=== PATIENT | female | born 1935 | race Caucasian/White ===

== ENCOUNTER 2018-03-19 15:02 | Emergency (ER) | payer MEDICARE ==
[~2018-03-19] VITALS: Ht 165.1 cm; Wt 81.0 kg
[~2018-03-19 15:02] MED LIST: ASPI-1264 PO; ATOR20TA PO; CALC-336 PO; CARV-50 PO; CLOP75TA35 PO; DOCU100C40 PO; ENAL20TA75 PO; LACT1CAP26 PO; METF500T7 PO; MULT-1074 PO; OMEG300C3 PO; OMEP20CA4 PO; PARO10TA85 PO
[2018-03-19 15:18] VITALS: BP 154/82
[2018-03-19 16:29] LABS: CLARITY,URINE CLEAR (Clear); COLOR,URINE YELLOW (Yellow); GLUCOSE, URINE NEGATIVE (Neg); KETONES,URINE NEGATIVE (Neg); LEUKOCYTE ESTERASE ,URINE NEGATIVE (Neg); NITRITES, URINE NEGATIVE (Neg); OCCULT BLOOD,URINE TRACE-INTACT (Neg); PH,URINE 6.5 (4.8-8.0); PROTEIN,URINE NEGATIVE (Neg); UROBILINOGEN,URINE 0.2 E.U/dL (0.2-1.0)
[2018-03-19 16:36] LABS: UA COLLECTION TYPE CLN CATCH MIDSTREAM
[2018-03-19 16:38] LABS: BACTERIA,URINE FEW /HPF (Neg); SQUAMOUS EPITHELIAL CELL,UR FEW /LPF (FEW); WBC,URINE 0-4 /HPF (0-4)
[2018-03-19 18:29] LABS: BASOPHILS % (AUTO) 0.8 % (0-1); EOSINOPHILS # (AUTO) 0.2 X10'3 (0-0.9); EOSINOPHILS % (AUTO) 3.2 % (0-6); HEMATOCRIT 35.7 % (35.0-45.0); HEMOGLOBIN 11.9 g/dl (12.0-16.0); LYMPHOCYTES # (AUTO) 1.9 X10'3 (1.1-4.8); LYMPHOCYTES % (AUTO) 31.4 % (21-51); MEAN CORPUSCULAR HEMOGLOBIN 33.2 PG (27.0-31.0); MEAN CORPUSCULAR HGB CONC 33.2 % (33.0-36.5); MEAN CORPUSCULAR VOLUME 99.8 FL (78-98); MEAN PLATELET VOLUME 9.4 FL (7.4-10.4); MONOCYTES # (AUTO) 0.5 X10'3 (0-0.9); MONOCYTES % (AUTO) 7.9 % (2-12); NEUTROPHILS # (AUTO) 3.5 X10'3 (1.8-7.7); NEUTROPHILS % (AUTO) 56.7 % (42-75); PLATELET COUNT 260 X10'3 (140-440); RED BLOOD COUNT 3.58 X10'6 (4.20-5.60); RED CELL DISTRIBUTION WIDTH 12.3 % (11.5-14.5); WHITE BLOOD COUNT 6.1 X10'3 (4.5-11.0)
[2018-03-19 18:42] LABS: ALANINE AMINOTRANSFERASE 29 U/L (12-78); ALBUMIN 3.4 G/DL (3.4-5.0); ALBUMIN/GLOBULIN RATIO 0.9 (1.1-1.5); ALKALINE PHOSPHATASE 65 IU/L (46-116); ANION GAP 6 (8-16); ASPARTATE AMINO TRANSFERASE 21 U/L (10-37); BILIRUBIN,TOTAL 0.4 MG/DL (0.1-1.0); BLOOD UREA NITROGEN 15 MG/DL (7-18); BUN/CREATININE RATIO 16.1 (6.6-38.0); CALCIUM 9.3 MG/DL (8.5-10.1); CHLORIDE 102 MMOL/L (99-107); CREATININE 0.93 MG/DL (0.40-0.90); GLUCOSE 110 MG/DL (70-104); POTASSIUM 4.3 MMOL/L (3.5-5.1); SODIUM 138 MMOL/L (135-145); TOTAL CARBON DIOXIDE 30.4 MMOL/L (24-32); TOTAL PROTEIN 7.1 G/DL (6.4-8.2); eGFR 58 ML/MIN
[2018-03-19] MEDS ORDERED: TRAM50TA2 PO (19:23)
== END 2018-03-19 19:44 | disposition home or self-care (01) ==
LOC: ER 15:02
DX: M25.552 Pain in left hip (principal); I11.0 Hypertensive heart disease with heart failure; I50.9 Heart failure, unspecified; E11.9 Type 2 diabetes mellitus without complications; Z88.0 Allergy status to penicillin; Z90.49 Acquired absence of other specified parts of digestive tract
CPT/HCPCS: 36415; 73502; 80053; 81001; 85025; 99284

== ENCOUNTER 2018-06-26 05:57 | Day surgery (SDC) | payer MEDICARE ==
[2018-06-25 15:26] LABS: BASOPHILS # (AUTO) 0.1 X10'3 (0-0.2); BASOPHILS % (AUTO) 1.3 % (0-1); EOSINOPHILS # (AUTO) 0.2 X10'3 (0-0.9); EOSINOPHILS % (AUTO) 3.3 % (0-6); HEMATOCRIT 34.9 % (35.0-45.0); HEMOGLOBIN 11.6 g/dl (12.0-16.0); LYMPHOCYTES # (AUTO) 1.7 X10'3 (1.1-4.8); LYMPHOCYTES % (AUTO) 30.5 % (21-51); MEAN CORPUSCULAR HEMOGLOBIN 33.1 PG (27.0-31.0); MEAN CORPUSCULAR HGB CONC 33.3 g/dL (33.0-36.5); MEAN CORPUSCULAR VOLUME 99.3 FL (78-98); MEAN PLATELET VOLUME 9.6 FL (7.4-10.4); MONOCYTES # (AUTO) 0.6 X10'3 (0-0.9); MONOCYTES % (AUTO) 9.8 % (2-12); NEUTROPHILS # (AUTO) 3.1 X10'3 (1.8-7.7); NEUTROPHILS % (AUTO) 55.1 % (42-75); PLATELET COUNT 224 X10'3 (140-440); RED BLOOD COUNT 3.51 X10'6 (4.20-5.60); RED CELL DISTRIBUTION WIDTH 13.2 % (11.5-14.5); WHITE BLOOD COUNT 5.6 X10'3 (4.5-11.0)
[2018-06-25 15:36] LABS: ALBUMIN 3.3 G/DL (3.4-5.0); ANION GAP 8 (8-16); BLOOD UREA NITROGEN 16 MG/DL (7-18); BUN/CREATININE RATIO 13.8 (6.6-38.0); CALCIUM 9.2 MG/DL (8.5-10.1); CHLORIDE 105 MMOL/L (99-107); CREATININE 1.16 MG/DL (0.40-0.90); GLUCOSE 146 MG/DL (70-104); POTASSIUM 4.1 MMOL/L (3.5-5.1); SODIUM 142 MMOL/L (135-145); TOTAL CARBON DIOXIDE 29.5 MMOL/L (24-32); eGFR 45 ML/MIN
[2018-06-25 15:42] LABS: PARTIAL THROMBOPLASTIN TIME 24 SECONDS (22-32); PROTHROMBIN TIME 9.9 SECONDS (9.0-12.0)
[~2018-06-26] VITALS: Ht 165.1 cm; Wt 80.9 kg
[2018-06-26] VITALS (12 sets, daily range): BP systolic 121–177; BP diastolic 53–71
[2018-06-26] MEDS ORDERED: LORazepam 0.5 MG tablet PO PRN (06:10)
[2018-06-26] MEDS ORDERED: diphenhydrAMINE 25mg capsule PO PRN (06:10)
[2018-06-26] MEDS ORDERED: normal saline 1,000 ML IV SCH (06:10)
[2018-06-26] MEDS ORDERED: LIDOcaine/PRILOcaine 5gm cream TP ONE (06:10)
[2018-06-26] MEDS ORDERED: GLUC500T12 PO (06:29)
[2018-06-26] MEDS ORDERED: ASCO500C15 PO (06:29)
[2018-06-26] MEDS ORDERED: VIT1CAPS9 PO (06:29)
[2018-06-26] MEDS ORDERED: HYDR12.5 PO (06:29)
[2018-06-26] MEDS ORDERED: LIDOcaine 1% (10mg/ml)w/preservative injection 20ml MDV ONE (07:43)
[2018-06-26] MEDS ORDERED: heparin 1,000unit/ml 10ml vial 10 ML ONE (07:43)
[2018-06-26] MEDS ORDERED: fentaNYL/PF 50MCG/1 ML 2ML syringe ONE (07:43)
[2018-06-26] MEDS ORDERED: midazolam 2 mg/2 ml injection ONE (07:43)
[2018-06-26] MEDS ORDERED: iohexol 350 MG/ML 50ML vial IV ONE (07:44)
[2018-06-26] MEDS ORDERED: iohexol 350MG/ML 100ml bottle IV ONE (07:44)
[2018-06-26] MEDS ORDERED: nitroGLYCERIN-Tridil 50MG/D5W 250 ML IV ONE (07:44)
[2018-06-26] MEDS ORDERED: verapamil 2.5 mg/ml inj IV ONE (08:07)
== END 2018-06-26 13:45 | disposition home or self-care (01) ==
LOC: SSTAY O 05:57
PROVIDERS: ATTEND Internal Medicine Cardiovascular Disease
DX: I25.119 Atherosclerotic heart disease of native coronary artery with unspecified angina pectoris (principal); E11.9 Type 2 diabetes mellitus without complications; E78.5 Hyperlipidemia, unspecified; I11.0 Hypertensive heart disease with heart failure; I50.9 Heart failure, unspecified; G47.30 Sleep apnea, unspecified; F32.9 Major depressive disorder, single episode, unspecified; Z86.73 Personal history of transient ischemic attack (TIA), and cerebral infarction without residual deficits; Z79.899 Other long term (current) drug therapy; Z90.49 Acquired absence of other specified parts of digestive tract; Z90.710 Acquired absence of both cervix and uterus; Z85.118 Personal history of other malignant neoplasm of bronchus and lung; Z95.5 Presence of coronary angioplasty implant and graft; Z88.0 Allergy status to penicillin
CPT/HCPCS: 36415; 80048; 85025; 85610; 85730; 93005; 93458; 99152; 99153; A6257; J1644; J2001; J2250; J3010; J7030; Q0163; Q9967; A4620; C1769; J3490

== ENCOUNTER 2019-10-15 14:38 | Inpatient (IN) | payer MEDICARE ==
[~2019-10-15] VITALS: Ht 167.6 cm; Wt 79.0 kg
[~2019-10-15 14:38] MED LIST changes: +ASCO500C15 PO; -ASPI-1264 PO; -CLOP75TA35 PO; -DOCU100C40 PO; +GLUC500T12 PO; +HYDR12.5 PO; -LACT1CAP26 PO; +METF-900 PO; -METF500T7 PO; +VIT1CAPS9 PO
[2019-10-15 15:29] LABS: EOSINOPHILS # (AUTO) 0.1 X10'3 (0-0.9); HEMATOCRIT 35.1 % (35.0-45.0); HEMOGLOBIN 11.7 g/dl (12.0-16.0); MEAN CORPUSCULAR HEMOGLOBIN 33.9 PG (27.0-31.0); MEAN CORPUSCULAR HGB CONC 33.3 g/dL (33.0-36.5); MEAN CORPUSCULAR VOLUME 101.8 FL (78-98); MONOCYTES # (AUTO) 0.6 X10'3 (0-0.9); RED CELL DISTRIBUTION WIDTH 12.9 % (11.5-14.5)
[2019-10-15 15:30] LABS: BASOPHILS # (AUTO) 0.1 X10'3 (0-0.2); BASOPHILS % (AUTO) 1.2 % (0-1); EOSINOPHILS % (AUTO) 1.9 % (0-6); LYMPHOCYTES % (AUTO) 26.2 % (21-51); MONOCYTES % (AUTO) 7.9 % (2-12); NEUTROPHILS # (AUTO) 4.8 X10'3 (1.8-7.7); NEUTROPHILS % (AUTO) 62.8 % (42-75); PLATELET COUNT 249 X10'3 (140-440); RED BLOOD COUNT 3.44 X10'6 (4.20-5.60); WHITE BLOOD COUNT 7.6 X10'3 (4.5-11.0)
[2019-10-15 15:42] LABS: PARTIAL THROMBOPLASTIN TIME 23 SECONDS (22-32)
[2019-10-15 15:43] LABS: ALANINE AMINOTRANSFERASE 24 U/L (12-78); ALBUMIN 3.3 G/DL (3.4-5.0); ALKALINE PHOSPHATASE 52 IU/L (46-116); ANION GAP 7 (8-16); ASPARTATE AMINO TRANSFERASE 21 U/L (10-37); BILIRUBIN,TOTAL 0.4 MG/DL (0.1-1.0); BLOOD UREA NITROGEN 20 MG/DL (7-18); BUN/CREATININE RATIO 16.4 (6.6-38.0); CALCIUM 8.8 MG/DL (8.5-10.1); CHLORIDE 105 MMOL/L (99-107); CREATININE 1.22 MG/DL (0.40-0.90); GLUCOSE 150 MG/DL (70-104); POTASSIUM 4.6 MMOL/L (3.5-5.1); SODIUM 140 MMOL/L (135-145); TOTAL CARBON DIOXIDE 27.7 MMOL/L (24-32); TOTAL PROTEIN 6.7 G/DL (6.4-8.2); eGFR 42 ML/MIN
[2019-10-15] MEDS ORDERED: ESTR42.53 VG (16:13)
[2019-10-15] MEDS ORDERED: MIDAZolam 5mg/5ml vial ONE (17:39)
[2019-10-15] MEDS ORDERED: fentaNYL/PF 50MCG/1 ML 2ML syringe ONE (17:39)
--- NOTE | 2019-10-15 17:42 | NUR ---
PATIENT TO GI LAB
[2019-10-15 17:46] VITALS: BP 128/63
[2019-10-15] MEDS ORDERED: epiNEPHrine 0.1mg/ml 10ml syringe ONE (18:08)
[2019-10-15 18:51] VITALS: BP 143/74
[2019-10-15 19:01] VITALS: BP 142/64
[2019-10-15 19:11] VITALS: BP 134/56
[2019-10-15 19:21] VITALS: BP 124/60
[2019-10-15] MEDS ORDERED: morphine 2 MG/ML inj. syringe IV PRN ×2 (20:05)
[2019-10-15] MEDS ORDERED: magnesium 2GM in 50ml NS 50 ML IV PRN (20:05)
[2019-10-15] MEDS ORDERED: glucagon, human recombinant 1mg kit SUBCUT PRN (20:05)
[2019-10-15] MEDS ORDERED: dextrose ORAL solution 15 GM/59 ML bottle PO PRN ×2 (20:05)
[2019-10-15] MEDS ORDERED: potassium CL 10mEq/100ml bag 100 ML IV PRN ×2 (20:05)
[2019-10-15] MEDS ORDERED: insulin Lispro (HumaLOG) vial - multi-dose SQ SCH (20:05)
[2019-10-15] MEDS ORDERED: mag hydrox/Alum hydrox/simeth 30ml oral suspension PO PRN (20:05)
[2019-10-15] MEDS ORDERED: ipratropium/albuterol 3ml nebule NEB PRN (20:05)
[2019-10-15] MEDS ORDERED: ondansetron/PF 4mg/2ml inj IV PRN (20:05)
[2019-10-15] MEDS ORDERED: acetaminophen 325mg tablet PO PRN (20:05)
[2019-10-15] MEDS ORDERED: MESSAGE TO PHARMACY PO ONE (20:05)
[2019-10-15] MEDS ORDERED: magnesium 4gm in 100ml NS 100 ML IV PRN (20:05)
[2019-10-15] MEDS ORDERED: potassium Cl 20 mEq SR tablet PO PRN ×2 (20:05)
[2019-10-15] MEDS ORDERED: dextrose 50%-water 50ml dispensing syringe IV PRN ×2 (20:05)
[2019-10-15 20:41] LABS: HEMOGLOBIN A1C 6.3 % (4.5-6.2)
[2019-10-15] MEDS: normal saline 1000ml 1,000 ML IV SCH (20:52)
[2019-10-15] MEDS: carVEDilol 3.125mg tablet PO SCH (20:52)
[2019-10-15] MEDS: insulin glargine (Lantus) pen - multi-dose SQ SCH (21:00)
[2019-10-15 21:03] LABS: HEMATOCRIT 29.3 % (35.0-45.0); HEMOGLOBIN 9.7 g/dl (12.0-16.0); MEAN CORPUSCULAR HEMOGLOBIN 33.9 PG (27.0-31.0); MEAN CORPUSCULAR HGB CONC 33.1 g/dL (33.0-36.5); MEAN CORPUSCULAR VOLUME 102.5 FL (78-98); MEAN PLATELET VOLUME 9.2 FL (7.4-10.4); PLATELET COUNT 200 X10'3 (140-440); RED BLOOD COUNT 2.85 X10'6 (4.20-5.60); RED CELL DISTRIBUTION WIDTH 13.2 % (11.5-14.5); WHITE BLOOD COUNT 10.2 X10'3 (4.5-11.0)
--- NOTE | 2019-10-15 21:55 | NUR ---
I have received report from Cap, ED RN and had the opportunity to ask questions and assume patient care.
--- NOTE | 2019-10-15 22:05 | NUR ---
Patient on unit in wheelchair and ambulated to bed.
[2019-10-15 22:10] VITALS: BP 112/62
[2019-10-15] MEDS: beta-carotene(A) w/C & E + minerals tab PO SCH (23:27)
[2019-10-16] VITALS (9 sets, daily range): BP systolic 100–148; BP diastolic 42–57
[2019-10-16 03:11] LABS: HEMATOCRIT 25.4 % (35.0-45.0); HEMOGLOBIN 8.6 g/dl (12.0-16.0); MEAN CORPUSCULAR HEMOGLOBIN 34.9 PG (27.0-31.0); MEAN CORPUSCULAR VOLUME 102.8 FL (78-98); MEAN PLATELET VOLUME 9.3 FL (7.4-10.4); PLATELET COUNT 179 X10'3 (140-440); RED BLOOD COUNT 2.48 X10'6 (4.20-5.60); RED CELL DISTRIBUTION WIDTH 12.8 % (11.5-14.5); WHITE BLOOD COUNT 6.9 X10'3 (4.5-11.0)
[2019-10-16 03:29] LABS: ALANINE AMINOTRANSFERASE 20 U/L (12-78); ALBUMIN 2.7 G/DL (3.4-5.0); ALBUMIN/GLOBULIN RATIO 1.1 (1.1-1.5); ALKALINE PHOSPHATASE 39 IU/L (46-116); ANION GAP 5 (8-16); ASPARTATE AMINO TRANSFERASE 19 U/L (10-37); BILIRUBIN,TOTAL 0.3 MG/DL (0.1-1.0); BLOOD UREA NITROGEN 21 MG/DL (7-18); BUN/CREATININE RATIO 18.3 (6.6-38.0); CALCIUM 8.1 MG/DL (8.5-10.1); CHLORIDE 109 MMOL/L (99-107); CREATININE 1.15 MG/DL (0.40-0.90); GLUCOSE 124 MG/DL (70-104); MAGNESIUM 1.9 MG/DL (1.5-2.4); POTASSIUM 4.6 MMOL/L (3.5-5.1); SODIUM 139 MMOL/L (135-145); TOTAL CARBON DIOXIDE 25.2 MMOL/L (24-32); TOTAL PROTEIN 5.1 G/DL (6.4-8.2); eGFR 45 ML/MIN
[2019-10-16] MEDS: normal saline 1000ml 1,000 ML IV SCH ×2 (05:50→16:26)
--- NOTE | 2019-10-16 06:30 | NUR ---
Patient in room MATT 353. I have received report from Blanca ALLEN and had the opportunity to ask questions and assume patient care.
--- NOTE | 2019-10-16 06:44 | NUR ---
Problems reprioritized. Patient report given, questions answered & plan of care reviewed with TIFFANY Charles.
[2019-10-16] MEDS: lisinopril 20mg tablet PO SCH (08:00)
[2019-10-16] MEDS: HYDROchlorothiazide 12.5mg capsule PO SCH (08:00)
[2019-10-16] MEDS ORDERED: GLUCOSAMINE HCL PO SCH (08:00)
[2019-10-16] MEDS: carVEDilol 3.125mg tablet PO SCH ×2 (08:00→19:33)
[2019-10-16] MEDS: K and/or MAG REPLACEMENT MC SCH ×2 (08:00→19:17)
--- NOTE | 2019-10-16 08:42 | NUR ---
DM consult: Pt with A1c 6.3%, DM education not warranted at this time. Will continue to follow. Addendum: 10/16/19 at [address] Amended: Links added.
[2019-10-16 09:05] LABS: HEMATOCRIT 22.6 % (35.0-45.0); HEMOGLOBIN 7.6 g/dl (12.0-16.0); MEAN CORPUSCULAR HEMOGLOBIN 34.2 PG (27.0-31.0); MEAN CORPUSCULAR HGB CONC 33.5 g/dL (33.0-36.5); MEAN CORPUSCULAR VOLUME 102.1 FL (78-98); MEAN PLATELET VOLUME 9.1 FL (7.4-10.4); PLATELET COUNT 160 X10'3 (140-440); RED BLOOD COUNT 2.21 X10'6 (4.20-5.60); RED CELL DISTRIBUTION WIDTH 13.2 % (11.5-14.5); WHITE BLOOD COUNT 5.5 X10'3 (4.5-11.0)
[2019-10-16] MEDS: ascorbic acid 500mg tablet PO SCH (09:23)
[2019-10-16] MEDS: atorvastatin 20mg tablet PO SCH (09:23)
[2019-10-16] MEDS: pantoprazole 40mg Tablet.DR PO SCH (09:24)
[2019-10-16] MEDS: calcium carbonate 500mg tablet PO SCH (09:24)
[2019-10-16] MEDS: PARoxetine 10mg tablet PO SCH (09:27)
[2019-10-16] MEDS: beta-carotene(A) w/C & E + minerals tab PO SCH ×2 (09:27→19:33)
[2019-10-16] MEDS: multivitamins, therapeutics tablet PO SCH (09:27)
[2019-10-16 15:44] LABS: HEMOGLOBIN 7.2 g/dl (12.0-16.0); MEAN CORPUSCULAR HEMOGLOBIN 34.2 PG (27.0-31.0); MEAN CORPUSCULAR HGB CONC 33.5 g/dL (33.0-36.5); MEAN PLATELET VOLUME 9.5 FL (7.4-10.4); PLATELET COUNT 153 X10'3 (140-440); RED BLOOD COUNT 2.11 X10'6 (4.20-5.60); RED CELL DISTRIBUTION WIDTH 12.8 % (11.5-14.5); WHITE BLOOD COUNT 5.8 X10'3 (4.5-11.0)
[2019-10-16 15:46] LABS: HEMATOCRIT 21.5 % (35.0-45.0)
--- NOTE | 2019-10-16 15:58 | NUR ---
Dr. Gentile notified about lab result hgb 7.2/hct 21.5 PAGER ID: [phone] MESSAGE: Surgical Flr Melvin RN ext [phone]. RE: Donna Araiza. Reporting critical value hgb 7.2/ hct 21.5. Do you want transfusion for this patient? Dr. Chavira note said transfuse if hgb <7.0
--- NOTE | 2019-10-16 18:45 | NUR ---
Problems reprioritized. Patient report given, questions answered & plan of care reviewed with Blanca ALLEN.
--- NOTE | 2019-10-16 18:58 | NUR ---
Patient in room MATT 350. I have received report from TIFFANY Charles and had the opportunity to ask questions and assume patient care.
[2019-10-16 20:35] LABS: MEAN CORPUSCULAR HEMOGLOBIN 34.4 PG (27.0-31.0); MEAN CORPUSCULAR HGB CONC 33.7 g/dL (33.0-36.5); MEAN CORPUSCULAR VOLUME 102.1 FL (78-98); MEAN PLATELET VOLUME 9.5 FL (7.4-10.4); PLATELET COUNT 152 X10'3 (140-440); RED BLOOD COUNT 2.03 X10'6 (4.20-5.60); WHITE BLOOD COUNT 5.8 X10'3 (4.5-11.0)
[2019-10-16 20:42] LABS: HEMATOCRIT 20.7 % (35.0-45.0)
--- NOTE | 2019-10-16 20:51 | NUR ---
PAGER ID: [phone]-Pm. Roback MESSAGE: Donna Araiza, Lower GI bleed. H/H now 7.0/20.7, was 7.2/21.5 at 14:58. Would you like to transfuse? Blanca, Surg [phone]
[2019-10-16] MEDS: insulin glargine (Lantus) pen - multi-dose SQ SCH (21:00)
--- NOTE | 2019-10-16 21:16 | NUR ---
Per Dr. Chavira, transfuse 1 unit of blood. Order placed. Consent signed by patient and a copy of brochure given to patient.
[2019-10-17 00:18] VITALS: BP 121/41
--- NOTE | 2019-10-17 00:18 | NUR ---
Blood transfusion completed. VS: Temp 98.3 F, HR 62, RR 18, BP 121/41, Pain 0/10. Patient without complaint of pain or discomfort at this time. Will continue to monitor patient.
[2019-10-17 00:38] VITALS: BP 121/43
[2019-10-17] MEDS: normal saline 1000ml 1,000 ML IV SCH (02:38)
[2019-10-17 03:01] LABS: ALANINE AMINOTRANSFERASE 10 U/L (12-78); ALBUMIN 2.5 G/DL (3.4-5.0); ALKALINE PHOSPHATASE 32 IU/L (46-116); ANION GAP 3 (8-16); ASPARTATE AMINO TRANSFERASE 18 U/L (10-37); BILIRUBIN,TOTAL 0.6 MG/DL (0.1-1.0); BLOOD UREA NITROGEN 23 MG/DL (7-18); BUN/CREATININE RATIO 18.5 (6.6-38.0); CHLORIDE 109 MMOL/L (99-107); CREATININE 1.24 MG/DL (0.40-0.90); GLUCOSE 124 MG/DL (70-104); MAGNESIUM 1.8 MG/DL (1.5-2.4); POTASSIUM 4.2 MMOL/L (3.5-5.1); SODIUM 138 MMOL/L (135-145); TOTAL CARBON DIOXIDE 26.3 MMOL/L (24-32); eGFR 41 ML/MIN
[2019-10-17 03:06] LABS: HEMATOCRIT 23.9 % (35.0-45.0); HEMOGLOBIN 8.1 g/dl (12.0-16.0); MEAN CORPUSCULAR HEMOGLOBIN 33.4 PG (27.0-31.0); MEAN CORPUSCULAR HGB CONC 33.7 g/dL (33.0-36.5); MEAN CORPUSCULAR VOLUME 98.9 FL (78-98); MEAN PLATELET VOLUME 9.4 FL (7.4-10.4); PLATELET COUNT 137 X10'3 (140-440); RED BLOOD COUNT 2.42 X10'6 (4.20-5.60); WHITE BLOOD COUNT 6.9 X10'3 (4.5-11.0)
--- NOTE | 2019-10-17 06:31 | NUR ---
Patient in room MATT 350. I have received report from Blanca ALLEN and had the opportunity to ask questions and assume patient care.
--- NOTE | 2019-10-17 06:33 | NUR ---
Problems reprioritized. Patient report given, questions answered & plan of care reviewed with TIFFANY Charles.
[2019-10-17 07:52] VITALS: BP 146/60
[2019-10-17] MEDS: K and/or MAG REPLACEMENT MC SCH (08:00)
[2019-10-17 08:15] LABS: HEMATOCRIT 23.2 % (35.0-45.0); HEMOGLOBIN 7.8 g/dl (12.0-16.0); MEAN CORPUSCULAR HEMOGLOBIN 33.2 PG (27.0-31.0); MEAN CORPUSCULAR HGB CONC 33.6 g/dL (33.0-36.5); MEAN CORPUSCULAR VOLUME 98.9 FL (78-98); MEAN PLATELET VOLUME 9.4 FL (7.4-10.4); PLATELET COUNT 144 X10'3 (140-440); RED BLOOD COUNT 2.34 X10'6 (4.20-5.60); RED CELL DISTRIBUTION WIDTH 15.1 % (11.5-14.5); WHITE BLOOD COUNT 6.2 X10'3 (4.5-11.0)
[2019-10-17] MEDS: carVEDilol 3.125mg tablet PO SCH (09:04)
[2019-10-17] MEDS: HYDROchlorothiazide 12.5mg capsule PO SCH (09:04)
[2019-10-17] MEDS: multivitamins, therapeutics tablet PO SCH (09:04)
[2019-10-17] MEDS: PARoxetine 10mg tablet PO SCH (09:04)
[2019-10-17] MEDS: atorvastatin 20mg tablet PO SCH (09:04)
[2019-10-17] MEDS: ascorbic acid 500mg tablet PO SCH (09:04)
[2019-10-17] MEDS: pantoprazole 40mg Tablet.DR PO SCH (09:04)
[2019-10-17] MEDS: beta-carotene(A) w/C & E + minerals tab PO SCH (09:05)
[2019-10-17] MEDS: calcium carbonate 500mg tablet PO SCH (09:05)
[2019-10-17] MEDS: lisinopril 20mg tablet PO SCH (09:05)
--- NOTE | 2019-10-17 10:23 | NUR ---
PAGER ID: [phone] MESSAGE: Soledad-Surg [phone] Re; Mary [phone] complaining of chest pain for the last 30 min resolved to 05/25 pain please call would you like EKG Addendum: 10/17/19 at 1033 by Soledad West RN Documented on incorrect patient please disregard note.
[2019-10-17 11:00] VITALS: BP 144/57
[2019-10-17 13:11] LABS: HEMOGLOBIN 8.1 g/dl (12.0-16.0); MEAN CORPUSCULAR HEMOGLOBIN 33.2 PG (27.0-31.0); MEAN CORPUSCULAR HGB CONC 33.7 g/dL (33.0-36.5); MEAN CORPUSCULAR VOLUME 98.5 FL (78-98); MEAN PLATELET VOLUME 9.3 FL (7.4-10.4); PLATELET COUNT 149 X10'3 (140-440); RED BLOOD COUNT 2.44 X10'6 (4.20-5.60); RED CELL DISTRIBUTION WIDTH 15.2 % (11.5-14.5); WHITE BLOOD COUNT 5.3 X10'3 (4.5-11.0)
--- NOTE | 2019-10-17 13:28 | NUR ---
PAGER ID: [phone] MESSAGE: Surgical Dilan Charles RN ext [phone]. RE: Donna Araiza. Repeat Hgb 8.1 from 7.8. Hct 24 from 23.2
--- NOTE | 2019-10-17 13:47 | NUR ---
Per Dr Gentile ok to Discharge patient she spoke to Dr Pena./
--- NOTE | 2019-10-17 14:55 | NUR ---
Discharge patient home, discharge instructions given to patient. Patient verbalized understanding of all instructions made. Peripheral IV catheter removed, tip intact. Instructed patient to ensure she has all her belongings with her before leaving. Emphasized to patient the importance of follow up with her PCP and GI doctor Dr. Melgar.
[2019-10-19] MEDS ORDERED: estrogens, conjug. vaginal cream 45gm tube VG SCH (08:00)
--- NOTE | 2019-10-20 09:51 | NUR ---
Case Management DC follow up: spoke to pt via telephone. s/p: rectal bleed post prior colonoscopy. Reports:"doing well, no more bleeding" Denies: acute/continuous CP, emergent SOB, resp distress, N/V, VILLAFUERTE, blurry vision, vertigo, syncope episodes, weakness,emergent general pain, abd tenderness/distension, bladder pain, dysuria, polyuria, hematuria, retention, constipation, diarrhea, fever, unexplained bleeding, bruising. Verbalizes understanding of s/s that warrant 9-11/ER visit for further evaluation. Verbalizes understanding of new Rx: recommended Iron supplements, and why prescribed, resumes current Rx, taking as ordered, no ase r/t polypharmacy. Acknowledges need to schedule/keep follow up appts w/ PCP/Dr Galeano, awaiting call-back to schedule, dr Galeano 11/06/19. Verbalizes compliance w/DC aftercare. Needs met, questions answered at DC, no further questions or concerns at this time.
== END 2019-10-17 15:06 | disposition home or self-care (01) | DRG 920 ==
LOC: ER 14:39 → ED HOLD 20:01 → SUR 3N 22:00 → OBSVTOIN 10-16 08:20 → SUR 3N 10-16 12:45
PROVIDERS: ADMIT Family Medicine; ATTEND Family Medicine
PROC: 0W3P8ZZ Control Bleeding in Gastrointestinal Tract, Via Natural or Artificial Opening Endoscopic (ICD-10-PCS; principal; 2019-10-15)
PROC: 30233N1 Transfusion of Nonautologous Red Blood Cells into Peripheral Vein, Percutaneous Approach (ICD-10-PCS; 2019-10-16)
DX: K91.840 Postprocedural hemorrhage of a digestive system organ or structure following a digestive system procedure (principal); I13.0 Hypertensive heart and chronic kidney disease with heart failure and stage 1 through stage 4 chronic kidney disease, or unspecified chronic kidney disease; K92.1 Melena; E11.22 Type 2 diabetes mellitus with diabetic chronic kidney disease; E78.5 Hyperlipidemia, unspecified; I50.9 Heart failure, unspecified; N18.9 Chronic kidney disease, unspecified; F32.9 Major depressive disorder, single episode, unspecified; F41.9 Anxiety disorder, unspecified; K21.9 Gastro-esophageal reflux disease without esophagitis; K57.30 Diverticulosis of large intestine without perforation or abscess without bleeding; Y83.8 Other surgical procedures as the cause of abnormal reaction of the patient, or of later complication, without mention of misadventure at the time of the procedure; Z80.0 Family history of malignant neoplasm of digestive organs; Z80.3 Family history of malignant neoplasm of breast; Z80.49 Family history of malignant neoplasm of other genital organs; Z82.3 Family history of stroke; Z82.5 Family history of asthma and other chronic lower respiratory diseases; Z83.3 Family history of diabetes mellitus; Z85.118 Personal history of other malignant neoplasm of bronchus and lung; Z90.710 Acquired absence of both cervix and uterus; Z79.84 Long term (current) use of oral hypoglycemic drugs; Z79.899 Other long term (current) drug therapy; Y92.89 Other specified places as the place of occurrence of the external cause; Z88.0 Allergy status to penicillin; Z90.49 Acquired absence of other specified parts of digestive tract; Z87.891 Personal history of nicotine dependence
CPT/HCPCS: 36415; 36430; 45381; 45382; 76937; 80053; 82948; 83036; 83735; 85025; 85027; 85610; 85730; 86885; 86900; 86901; 86920; 87081; 93005; 94760; 97116; 97161; 97530; 97535; 99152; 99153; 99291; A4620; G0378; J0171; J1815; J2250; J3010; J7030; J7040; P9016

== ENCOUNTER 2019-12-08 08:15 | Emergency (ER) | payer MEDICARE ==
[~2019-12-08] VITALS: Ht 165.1 cm; Wt 79.1 kg
[~2019-12-08 08:15] MED LIST changes: +ESTR42.53 VG
[2019-12-08 09:00] LABS: CLARITY,URINE CLOUDY (Clear); GLUCOSE, URINE NEGATIVE (Neg); KETONES,URINE NEGATIVE (Neg); LEUKOCYTE ESTERASE ,URINE MODERATE (Neg); NITRITES, URINE NEGATIVE (Neg); OCCULT BLOOD,URINE LARGE (Neg); PH,URINE 6.5 (4.8-8.0); PROTEIN,URINE 100 mg/dl (Neg)
[2019-12-08 09:12] LABS: UA COLLECTION TYPE CLN CATCH MIDSTREAM
[2019-12-08 09:13] LABS: COLOR,URINE DARK YELLOW (Yellow)
[2019-12-08 09:16] LABS: BACTERIA,URINE 4+ /HPF (Neg); MUCUS STRANDS MODERATE /LPF (Neg); SQUAMOUS EPITHELIAL CELL,UR MANY /LPF (FEW); WBC,URINE 50-100 /HPF (0-4)
[2019-12-08] MEDS ORDERED: DOXY100C43 PO (09:20)
[2019-12-08] MEDS ORDERED: CEPH250T PO (09:20)
[2019-12-08] MEDS ORDERED: ALBU6.7H9 INH (09:20)
[2019-12-08 09:38] VITALS: BP 155/70
== END 2019-12-08 09:39 | disposition home or self-care (01) ==
LOC: ER 08:16
DX: N39.0 Urinary tract infection, site not specified (principal); J40 Bronchitis, not specified as acute or chronic; R05 Cough; R06.02 Shortness of breath; R30.0 Dysuria; I11.0 Hypertensive heart disease with heart failure; I50.9 Heart failure, unspecified; E11.9 Type 2 diabetes mellitus without complications; F41.9 Anxiety disorder, unspecified; F32.9 Major depressive disorder, single episode, unspecified; Z87.440 Personal history of urinary (tract) infections; Z85.118 Personal history of other malignant neoplasm of bronchus and lung; Z90.49 Acquired absence of other specified parts of digestive tract; Z98.890 Other specified postprocedural states; Z88.0 Allergy status to penicillin; Z79.2 Long term (current) use of antibiotics; Z79.899 Other long term (current) drug therapy
CPT/HCPCS: 36415; 71045; 81001; 99284

== ENCOUNTER 2022-05-19 11:18 | Inpatient (IN) | payer MEDICARE ==
[~2022-05-19] VITALS: Ht 166.4 cm; Wt 77.1 kg
[~2022-05-19 11:18] MED LIST changes: +ALBU6.7H14 INH; -ASCO500C15 PO; +ASCO500C18 PO; +PARO-153 PO; -PARO10TA85 PO
[2022-05-19 12:16] LABS: BASOPHILS # (AUTO) 0.1 X10'3 (0-0.2); BASOPHILS % (AUTO) 0.9 % (0-1); EOSINOPHILS # (AUTO) 0.2 X10'3 (0-0.9); EOSINOPHILS % (AUTO) 3.5 % (0-6); HEMATOCRIT 33.9 % (35.0-45.0); HEMOGLOBIN 11.4 g/dl (12.0-16.0); LYMPHOCYTES # (AUTO) 1.8 X10'3 (1.1-4.8); MEAN CORPUSCULAR HEMOGLOBIN 33.9 PG (27.0-31.0); MEAN CORPUSCULAR HGB CONC 33.6 g/dL (33.0-36.5); MEAN CORPUSCULAR VOLUME 100.8 FL (78-98); MEAN PLATELET VOLUME 9.6 FL (7.4-10.4); MONOCYTES # (AUTO) 0.6 X10'3 (0-0.9); MONOCYTES % (AUTO) 9.9 % (2-12); NEUTROPHILS # (AUTO) 3.3 X10'3 (1.8-7.7); NEUTROPHILS % (AUTO) 54.7 % (42-75); PLATELET COUNT 211 X10'3 (140-440); RED BLOOD COUNT 3.37 X10'6 (4.20-5.60); RED CELL DISTRIBUTION WIDTH 13.1 % (11.5-14.5); WHITE BLOOD COUNT 5.9 X10'3 (4.5-11.0)
[2022-05-19 12:23] LABS: ALANINE AMINOTRANSFERASE 18 U/L (12-78); ALBUMIN 3.3 G/DL (3.4-5.0); ALKALINE PHOSPHATASE 53 IU/L (46-116); ANION GAP 5 (8-16); ASPARTATE AMINO TRANSFERASE 15 U/L (10-37); BILIRUBIN,TOTAL 0.6 MG/DL (0.1-1.0); BLOOD UREA NITROGEN 17 MG/DL (7-18); BUN/CREATININE RATIO 17.5 (6.6-38.0); CALCIUM 9.1 MG/DL (8.5-10.1); CHLORIDE 104 MMOL/L (99-107); CREATININE 0.97 MG/DL (0.40-0.90); GLUCOSE 114 MG/DL (70-104); POTASSIUM 4.4 MMOL/L (3.5-5.1); SODIUM 141 MMOL/L (135-145); TOTAL CARBON DIOXIDE 31.7 MMOL/L (24-32); TOTAL PROTEIN 6.5 G/DL (6.4-8.2); eGFR 55 ML/MIN
[2022-05-19 12:32] LABS: MAGNESIUM 1.9 MG/DL (1.5-2.4)
[2022-05-19] MEDS ORDERED: nitroGLYCERIN 0.4mg SUBLingual tab SL PRN (13:20)
[2022-05-19] MEDS ORDERED: potassium Cl 40MEQ/1/2NS 520ml 520 ML IV PRN (13:20)
[2022-05-19] MEDS ORDERED: potassium Cl 20 mEq SR tablet PO PRN ×2 (13:20)
[2022-05-19] MEDS ORDERED: magnesium 4gm in 100ml NS 100 ML IV PRN (13:20)
[2022-05-19] MEDS ORDERED: magnesium Cl slow-release 64mg tablet PO PRN (13:20)
[2022-05-19] MEDS ORDERED: regadenoson 0.4mg/5ml syringe IV PRN (13:20)
[2022-05-19] MEDS ORDERED: PERFLUTREN PROTEIN-A MICROSPHR (Optison) 0.22 MG/ML 3ML VIAL IV ONE (13:20)
[2022-05-19] MEDS ORDERED: morphine 2 MG/ML inj. syringe IV PRN ×2 (13:20)
[2022-05-19] MEDS ORDERED: acetaminophen 325mg tablet PO PRN (13:20)
[2022-05-19] MEDS ORDERED: aminophylline 250mg/10ml inj. IV PRN (13:20)
[2022-05-19] MEDS ORDERED: ondansetron/PF 4mg/2ml inj IV PRN (13:20)
[2022-05-19] MEDS ORDERED: mag hydrox/Alum hydrox/simeth 30ml oral suspension PO PRN (13:20)
[2022-05-19] MEDS ORDERED: magnesium hydroxide 30ml (MOM) UD suspension PO PRN (13:20)
[2022-05-19] MEDS ORDERED: metoprolol tartrate 1mg/ml inj IV PRN (13:20)
[2022-05-19] MEDS: normal saline 1000ml 1,000 ML IV SCH ×2 (13:43→23:20)
[2022-05-19] MEDS ORDERED: ASPI-500 PO (14:03)
[2022-05-19 17:38] VITALS: BP 170/59
[2022-05-19] MEDS ORDERED: ASPI81TA52 PO (17:38)
[2022-05-19] MEDS: docusate sod 100mg capsule PO SCH (20:00)
[2022-05-19] MEDS ORDERED: carVEDilol 12.5mg tablet PO SCH (20:00)
[2022-05-19] MEDS: K and/or MAG REPLACEMENT MC SCH (20:00)
[2022-05-19] MEDS: beta-carotene(A) w/C & E + minerals tab PO SCH (20:10)
[2022-05-19] MEDS: lisinopril 20mg tablet PO SCH (20:10)
[2022-05-20] VITALS (10 sets, daily range): BP systolic 136–177; BP diastolic 56–71
--- NOTE | 2022-05-20 06:20 | NUR ---
Patient in room PCU 3024. I have received report from Jerson ALLEN and had the opportunity to ask questions and assume patient care. Patient resting in bed in no acute distress.
[2022-05-20 06:34] LABS: BASOPHILS # (AUTO) 0.1 X10'3 (0-0.2); BASOPHILS % (AUTO) 1.4 % (0-1); EOSINOPHILS # (AUTO) 0.3 X10'3 (0-0.9); EOSINOPHILS % (AUTO) 4.4 % (0-6); HEMATOCRIT 30.2 % (35.0-45.0); HEMOGLOBIN 9.9 g/dl (12.0-16.0); LYMPHOCYTES # (AUTO) 2.2 X10'3 (1.1-4.8); LYMPHOCYTES % (AUTO) 36.5 % (21-51); MEAN CORPUSCULAR HEMOGLOBIN 33.6 PG (27.0-31.0); MEAN CORPUSCULAR HGB CONC 32.8 g/dL (33.0-36.5); MEAN CORPUSCULAR VOLUME 102.3 FL (78-98); MEAN PLATELET VOLUME 9.4 FL (7.4-10.4); MONOCYTES # (AUTO) 0.6 X10'3 (0-0.9); MONOCYTES % (AUTO) 10.5 % (2-12); NEUTROPHILS # (AUTO) 2.8 X10'3 (1.8-7.7); NEUTROPHILS % (AUTO) 47.2 % (42-75); PLATELET COUNT 185 X10'3 (140-440); RED BLOOD COUNT 2.95 X10'6 (4.20-5.60); WHITE BLOOD COUNT 5.9 X10'3 (4.5-11.0)
[2022-05-20 06:50] LABS: ALBUMIN 2.8 G/DL (3.4-5.0); ANION GAP 3 (8-16); BLOOD UREA NITROGEN 25 MG/DL (7-18); BUN/CREATININE RATIO 24.5 (6.6-38.0); CALCIUM 8.4 MG/DL (8.5-10.1); CHLORIDE 109 MMOL/L (99-107); CREATININE 1.02 MG/DL (0.40-0.90); GLUCOSE 100 MG/DL (70-104); POTASSIUM 4.4 MMOL/L (3.5-5.1); SODIUM 142 MMOL/L (135-145); TOTAL CARBON DIOXIDE 29.6 MMOL/L (24-32); eGFR 52 ML/MIN
[2022-05-20] MEDS ORDERED: HYDROchlorothiazide 12.5mg capsule PO SCH (08:00)
[2022-05-20] MEDS ORDERED: pantoprazole 40mg Tablet.DR PO SCH (08:00)
[2022-05-20] MEDS ORDERED: PARoxetine 10mg tablet PO SCH (08:00)
[2022-05-20] MEDS ORDERED: enoxaparin 40mg/0.4ml syringe SUBCUT SCH (08:00)
[2022-05-20] MEDS ORDERED: atorvastatin 20mg tablet PO SCH (08:00)
[2022-05-20] MEDS ORDERED: ascorbic acid 500mg tablet PO SCH (08:00)
[2022-05-20] MEDS ORDERED: aspirin 81mg, enteric-coated 1 TAB TABLET.DR PO SCH (08:00)
[2022-05-20] MEDS ORDERED: multivitamins, therapeutics tablet PO SCH (08:00)
[2022-05-20] MEDS: docusate sod 100mg capsule PO SCH (08:00)
[2022-05-20] MEDS: K and/or MAG REPLACEMENT MC SCH (08:00)
[2022-05-20] MEDS ORDERED: OMEGA-3/DHA/EPA/FISH OIL 1 EACH CAPSULE.DR PO SCH (08:00)
[2022-05-20] MEDS ORDERED: CALCIUM CARBONATE 600 MG PO SCH (08:00)
[2022-05-20] MEDS: lisinopril 20mg tablet PO SCH (08:01)
[2022-05-20] MEDS: beta-carotene(A) w/C & E + minerals tab PO SCH (08:01)
[2022-05-20] MEDS ORDERED: carVEDilol 3.125mg tablet PO SCH (08:04)
[2022-05-20] MEDS: normal saline 1000ml 1,000 ML IV SCH (10:09)
--- NOTE | 2022-05-20 12:16 | NUR ---
PAGER ID: [phone] MESSAGE: CHELSY ON [email or web address], HAL REPORT IS AVAILABLE FOR 7107N, THX (58 character message out of a maximum of 240) CLOSE [X] SEND ANOTHER PAGE Thank you for visiting [facility] promotional table spacer promotional table spacer
--- NOTE | 2022-05-20 15:09 | NUR ---
Patient DC to home and was picked up by a friend. Patient PIV was removed with cannula intact. No new RX. DC instructions and warning s/s were reviewed with the patient and she verbalized understanding. Patient alert, oriented, and appropriate at time of DC. Patient took phone, shoes, pjs, and valerio with her. Patient wheeled to front and helped into car.
== END 2022-05-20 14:42 | disposition home or self-care (01) | DRG 392 ==
LOC: ER 11:18 → ED HOLD 13:25 → PCU 3S 16:02
PROVIDERS: ADMIT Family Medicine; ATTEND Family Medicine
PROC: 4A02XM4 Measurement of Cardiac Total Activity, External Approach (ICD-10-PCS; principal; 2022-05-20)
PROC: 3E033HZ Introduction of Radioactive Substance into Peripheral Vein, Percutaneous Approach (ICD-10-PCS; 2022-05-20)
DX: K21.9 Gastro-esophageal reflux disease without esophagitis (principal); I50.30 Unspecified diastolic (congestive) heart failure; R07.89 Other chest pain; E11.9 Type 2 diabetes mellitus without complications; E78.5 Hyperlipidemia, unspecified; I11.0 Hypertensive heart disease with heart failure; I25.10 Atherosclerotic heart disease of native coronary artery without angina pectoris; F32.A Depression, unspecified; F41.9 Anxiety disorder, unspecified; G47.30 Sleep apnea, unspecified; I35.9 Nonrheumatic aortic valve disorder, unspecified; J44.9 Chronic obstructive pulmonary disease, unspecified; Z79.84 Long term (current) use of oral hypoglycemic drugs; Z79.899 Other long term (current) drug therapy; Z80.0 Family history of malignant neoplasm of digestive organs; Z80.3 Family history of malignant neoplasm of breast; Z80.49 Family history of malignant neoplasm of other genital organs; Z82.3 Family history of stroke; Z82.5 Family history of asthma and other chronic lower respiratory diseases; Z83.3 Family history of diabetes mellitus; Z85.118 Personal history of other malignant neoplasm of bronchus and lung; Z87.891 Personal history of nicotine dependence; Z88.0 Allergy status to penicillin; Z90.710 Acquired absence of both cervix and uterus; Z95.5 Presence of coronary angioplasty implant and graft; Z90.49 Acquired absence of other specified parts of digestive tract
CPT/HCPCS: 36415; 71045; 78452; 80048; 80053; 83735; 83880; 84484; 85025; 87081; 93005; 93017; 93306; 99285; A9500; G0378; J1650; J2785; J7030

== ENCOUNTER 2024-02-03 18:44 | Emergency (ER) | payer MEDICARE ==
[~2024-02-03] VITALS: Ht 165.1 cm; Wt 73.7 kg
[~2024-02-03 18:44] MED LIST changes: -ALBU6.7H14 INH; +AMLO5TAB16 PO; +ASPI81TA52 PO; -ATOR20TA PO; +ATOR40TA72 PO; -CARV-50 PO; +CARV6.253 PO; +CHOL20002 PO; +ENAL-79 PO; -ENAL20TA75 PO; -ESTR42.53 VG; -GLUC500T12 PO; -HYDR12.5 PO; -METF-900 PO; -PARO-153 PO; +PARO10TA4 PO
[2024-02-03 19:24] LABS: BILIRUBIN,URINE NEGATIVE (Neg); CLARITY,URINE CLEAR (Clear); COLOR,URINE YELLOW (Yellow); GLUCOSE, URINE NEGATIVE (Neg); KETONES,URINE NEGATIVE (Neg); LEUKOCYTE ESTERASE ,URINE MODERATE (Neg); NITRITES, URINE NEGATIVE (Neg); OCCULT BLOOD,URINE SMALL (Neg); PH,URINE 6.5 (4.8-8.0); PROTEIN,URINE 100 mg/dl (Neg)
[2024-02-03 19:47] LABS: UA COLLECTION TYPE CLN CATCH MIDSTREAM
[2024-02-03 19:48] LABS: BACTERIA,URINE 4+ /HPF (Neg); SQUAMOUS EPITHELIAL CELL,UR FEW /LPF (FEW); WBC,URINE 50-100 /HPF (0-4)
[2024-02-03 19:54] LABS: BASOPHILS # (AUTO) 0.1 X10'3 (0-0.2); BASOPHILS % (AUTO) 1.3 % (0-1); EOSINOPHILS # (AUTO) 0.3 X10'3 (0-0.9); EOSINOPHILS % (AUTO) 2.9 % (0-6); HEMATOCRIT 35.3 % (35.0-45.0); HEMOGLOBIN 11.9 g/dl (12.0-16.0); LYMPHOCYTES # (AUTO) 2.2 X10'3 (1.1-4.8); LYMPHOCYTES % (AUTO) 23.7 % (21-51); MEAN CORPUSCULAR HEMOGLOBIN 34.5 PG (27.0-31.0); MEAN CORPUSCULAR HGB CONC 33.8 g/dL (33.0-36.5); MEAN CORPUSCULAR VOLUME 102.1 FL (78-98); MEAN PLATELET VOLUME 9.9 FL (7.4-10.4); MONOCYTES # (AUTO) 0.7 X10'3 (0-0.9); MONOCYTES % (AUTO) 7.4 % (2-12); NEUTROPHILS # (AUTO) 6.1 X10'3 (1.8-7.7); NEUTROPHILS % (AUTO) 64.7 % (42-75); PLATELET COUNT 229 X10'3 (140-440); RED BLOOD COUNT 3.46 X10'6 (4.20-5.60); RED CELL DISTRIBUTION WIDTH 13.7 % (11.5-14.5); WHITE BLOOD COUNT 9.4 X10'3 (4.5-11.0)
[2024-02-03 20:01] LABS: ALANINE AMINOTRANSFERASE 17 U/L (12-78); ALBUMIN 3.3 G/DL (3.4-5.0); ALBUMIN/GLOBULIN RATIO 0.9 (1.1-1.5); ALKALINE PHOSPHATASE 60 IU/L (46-116); ANION GAP 5 (8-16); ASPARTATE AMINO TRANSFERASE 20 U/L (10-37); BILIRUBIN,TOTAL 0.4 MG/DL (0.1-1.0); BLOOD UREA NITROGEN 28 MG/DL (7-18); BUN/CREATININE RATIO 21.9 (10.0-20.0); CALCIUM 8.3 MG/DL (8.5-10.1); CHLORIDE 103 MMOL/L (99-107); CREATININE 1.28 MG/DL (0.40-0.90); GLUCOSE 143 MG/DL (70-104); POTASSIUM 4.2 MMOL/L (3.5-5.1); SODIUM 138 MMOL/L (135-145); TOTAL CARBON DIOXIDE 30.3 MMOL/L (24-32); TOTAL PROTEIN 6.8 G/DL (6.4-8.2); eCRCL 28 ML/MIN; eGFR 39 ML/MIN
[2024-02-03] MEDS ORDERED: NITR100C PO (23:34)
[2024-02-03 23:40] VITALS: BP 150/56; PULSE 60; RESP 16; TEMP 98.6; O2SAT 98
[2024-02-03] MEDS: nitrofuran monohydrate/nitrofuran macrocrysal 100 MG (MacroBID) capsule PO ONE (23:46)
== END 2024-02-03 23:48 | disposition home or self-care (01) ==
LOC: ER 18:44
DX: N39.0 Urinary tract infection, site not specified (principal); I11.0 Hypertensive heart disease with heart failure; I50.9 Heart failure, unspecified; E11.9 Type 2 diabetes mellitus without complications; Z79.899 Other long term (current) drug therapy; Z85.118 Personal history of other malignant neoplasm of bronchus and lung; Z87.440 Personal history of urinary (tract) infections; Z88.0 Allergy status to penicillin; Z90.49 Acquired absence of other specified parts of digestive tract
CPT/HCPCS: 36415; 80053; 81001; 85025; 87077; 87088; 87186; 99283

== ENCOUNTER 2024-09-30 10:39 | Day surgery (SDC) | payer MEDICARE ==
[2024-09-29 11:14] LABS: CREATININE 1.11 MG/DL (0.40-0.90); TOTAL CARBON DIOXIDE 28.9 MMOL/L (24-32); eGFR 46 ML/MIN
[2024-09-29 11:17] LABS: APTT 24 SECONDS (22-32); INR 1.0 INR
[2024-09-29 11:20] LABS: MEAN PLATELET VOLUME 9.2 FL (7.4-10.4); RED CELL DISTRIBUTION WIDTH 14.2 % (11.5-14.5)
[2024-09-30] VITALS (13 sets, daily range): BP systolic 117–164; BP diastolic 50–75; PULSE 55–68; RESP 14–20; TEMP 97.9; O2SAT 92–95
[~2024-09-30] VITALS: Ht 165.1 cm; Wt 72.4 kg
[~2024-09-30 10:39] MED LIST changes: +NITR100C PO
[2024-09-30] MEDS ORDERED: APIX5TAB3 PO (11:31)
[2024-09-30] MEDS ORDERED: PARO20TA6 PO (11:31)
[2024-09-30] MEDS ORDERED: AMLO5TAB PO (11:31)
[2024-09-30] MEDS ORDERED: METF-900 PO (11:31)
--- NOTE | 2024-09-30 11:32 | ELECTROCARDIOGRAPH REPORT ---
[facility] Test Date: 2024-09-30 Test Time: 11:19:17 Pat Name: DEBRA WILKES Department: SHORT STAY 1ST FLOOR Patient ID: [id number] Room: Gender: F Paralegal Secretary: EUSEBIO : 1935 Requested By: JULIETA MCGHEE Order Number: [id number] Reading MD: Dr. DANIEL Mcghee Measurements Intervals [place] Rate: 60 P: 83 IN: 135 QRS: 10 QRSD: 103 T: 30 QT: 436 QTc: 436 Interpretive Statements Sinus rhythm Atrial premature complex LVH with secondary repolarization abnormality Tall R wave in V2, consider RVH or PMI Electronically Signed On 09-30-2024 19:51:[address] DANIEL Mcghee Please click the below link to view image of tracing.
[2024-09-30] MEDS ORDERED: normal saline 1000ml 1,000 ML IV SCH (12:00)
[2024-09-30] MEDS ORDERED: fentaNYL/PF 50MCG/1 ML 2ML syringe ONE (12:03)
[2024-09-30] MEDS ORDERED: LIDOcaine 1% W/epiNEPHrine 1:100,000 20ml vial ONE (12:03)
[2024-09-30] MEDS ORDERED: midazolam 1 mg/ML 2ml injection ONE (12:03)
[2024-09-30] MEDS ORDERED: clindamycin-Cleocin 900mg/D5W 50 ML IV SCH (12:20)
[2024-09-30] MEDS ORDERED: vancomycin 1,000mg inj ONE (12:42)
[2024-09-30] MEDS ORDERED: iohexol 350 MG/ML 50ML vial IV ONE (12:45)
[2024-09-30] MEDS ORDERED: hydrALAZINE 20mg/ml inj. ONE (13:17)
[2024-09-30] MEDS ORDERED: HYDROcodone/acetaminophen 5mg/325mg tablet PO PRN (14:30)
[2024-09-30] MEDS ORDERED: HYDROcodone/acetaminophen 10/325mg tab PO PRN (14:30)
[2024-09-30] MEDS ORDERED: CLIN-197 PO (14:35)
[2024-09-30] MEDS: vancomycin/NS 1 GM ADD-VANTAGE 250 ML X 1 DOSE IV ONE (16:02)
--- NOTE | 2024-09-30 16:23 | RADIOLOGY REPORT ---
CHEST RADIOGRAPH Indication: s/p pacemaker Technique: Frontal and lateral view of the chest was obtained Comparison: None FINDINGS: Lines and Tubes: Left chest wall pacemaker. Lungs: Bibasilar subsegmental atelectasis. Pleura: No effusion. No pneumothorax. Cardiomediastinal contours: Unremarkable Bones: Unremarkable IMPRESSION: Bibasilar subsegmental atelectasis.
--- NOTE | 2024-10-01 09:34 | CARDIOLOGY REPORT ---
DATE OF SERVICE: 09/30/2024 DICTATING PHYSICIAN: DANIEL Greene MD PERMANENT PACEMAKER IMPLANTATION REPORT GENDER: Female. AGE: 89 years. HEIGHT: 165 cm. WEIGHT: 72.4 kg. BODY SURFACE AREA: 1.8 m2. PRIMARY PHYSICIAN: Jeffery Galeano MD CARDIOLOGY: DANIEL Greene MD INDICATIONS: The patient is an 89-year-old postmenopausal female with diabetes, hypertension, hyperlipidemia, sleep apnea, sick sinus syndrome, symptomatic bradycardia, and diastolic heart failure. The patient's event monitor from 07/2024 showed lowest heart rate of 38 with also episodes of tachyarrhythmia. After discussing risks, benefits and alternative options, the patient prefers to proceed with permanent pacemaker implantation In view of her progressive tiredness, and fatigue, and episodes of dizziness. Risks, benefits and alternative options discussed. Informed consent obtained. SURGEON: DANIEL Greene MD, FACC POWER TOOL REPAIR TECHNICIAN SURGEON: None. ANESTHESIOLOGIST: None. ANESTHESIA: Conscious sedation. COMPLICATIONS: None. BLOOD LOSS: Less than 5 mL. PROCEDURES DONE: * Fluoroscopy. * AV sequential pacemaker implantation. * Conscious sedation of 75 minutes. DESCRIPTION OF PROCEDURE: Left infraclavicular area was prepped and draped in the usual fashion. Using micropuncture Seldinger technique, two separate accesses of the left subclavian vein where two micropuncture wires were placed in the right atrium, then exchanged to two J-wires. A horizontal incision placed in the left infraclavicular area. Using blunt dissection and electrocautery, subcutaneous prepectoral pacemaker pocket was fashioned. External ends of the J-wires were retrieved into the pacemaker pocket. Two 7-Hebrew sheaths were advanced over both the wires. Through one of them, RV lead advanced to the RV apex, screwed into the RV apex. Appropriate pacing and sensing thresholds obtained. Sheath was removed by peel-away technique and lead anchored to the subcutaneous tissue with Ethibond. Through the second 7-Hebrew sheath, atrial lead advanced to the right atrium. J-wires formed, screwed into the right atrial appendage. Appropriate pacing and sensing thresholds obtained, sheath was removed by peel-away technique. Lead anchored to the subcutaneous tissue with Ethibond. Pocket was irrigated with copious antibiotic solution. Leads connected to appropriate sockets of the pulse generator. Set screws were tightened. Tug test performed and the pacemaker was suspended into the pacemaker pocket. The pocket was closed with continuous 0 Vicryl, followed by interrupted 2-0 Vicryl, third layer with interrupted 2-0 Vicryl applied. Skin approximated with isaac. Pressure dressing applied. The patient tolerated the procedure with no complications. TECHNICAL INFORMATION: DEVICE USED: Medtronic MRI-compatible Salima MRI pacemaker. Model #[id number], serial #[id number], Medtronic, 09/30/2024, left pectoral location. RIGHT ATRIAL LEAD: Model #4076, 52 cm long, serial #[id number], 09/30/2024, right atrial appendage, P-wave amplitude 1.9 millivolts, 532 ohms of impedance, pacing threshold of 1 volt at 0.4 milliseconds. RV LEAD: Model #5076, 58 cm long, serial #[id number], Medtronic, 09/30/2024, RV apex, R-wave amplitude of 10 millivolts, 650 ohms of impedance, pacing threshold of 0.5 volt at 0.4 milliseconds. IMPRESSION: An 89-year-old female with sick sinus syndrome, with tachycardia episode, underwent successful AV sequential pacemaker implantation with no complications. DANIEL Greene MD TID: [id number] RECEIPT: [id number] BAUTISTA/ASH/CORINA cc: Jeffery Galeano MD [facility]
== END 2024-09-30 18:15 | disposition home or self-care (01) ==
LOC: SSTAY O 10:39
PROVIDERS: ATTEND Internal Medicine Cardiovascular Disease
DX: I49.5 Sick sinus syndrome (principal); I49.1 Atrial premature depolarization; I48.91 Unspecified atrial fibrillation; R53.83 Other fatigue; I25.10 Atherosclerotic heart disease of native coronary artery without angina pectoris; I11.0 Hypertensive heart disease with heart failure; I50.30 Unspecified diastolic (congestive) heart failure; E11.9 Type 2 diabetes mellitus without complications; E78.5 Hyperlipidemia, unspecified; G47.30 Sleep apnea, unspecified; F32.A Depression, unspecified; Z85.118 Personal history of other malignant neoplasm of bronchus and lung; Z86.73 Personal history of transient ischemic attack (TIA), and cerebral infarction without residual deficits; Z79.82 Long term (current) use of aspirin; Z79.84 Long term (current) use of oral hypoglycemic drugs; Z79.899 Other long term (current) drug therapy; Z90.2 Acquired absence of lung [part of]; Z90.49 Acquired absence of other specified parts of digestive tract; Z90.710 Acquired absence of both cervix and uterus; Z83.3 Family history of diabetes mellitus; Z82.49 Family history of ischemic heart disease and other diseases of the circulatory system; Z80.9 Family history of malignant neoplasm, unspecified
CPT/HCPCS: 33208; 36415; 71046; 80048; 85025; 85610; 85730; 93005; 99152; 99153; A4565; A6402; C1785; C1898; J0360; J1200; J2250; J3010; J3373; J3490; J7030; Z7610; A6449; Q9967

== ENCOUNTER 2025-03-08 04:29 | Emergency (ER) | payer MEDICARE ==
[~2025-03-08] VITALS: Ht 175.3 cm; Wt 75.9 kg
[~2025-03-08 04:29] MED LIST changes: +AMLO5TAB PO; -AMLO5TAB16 PO; +APIX5TAB3 PO; -ASCO500C18 PO; -CALC-336 PO; +MECL-226 PO; +METF-900 PO; -MULT-1074 PO; -NITR100C PO; -OMEG300C3 PO; -PARO10TA4 PO; +PARO20TA6 PO
[2025-03-08 05:26] LABS: MEAN PLATELET VOLUME 9.7 FL (7.4-10.4); RED CELL DISTRIBUTION WIDTH 14.7 % (11.5-14.5)
[2025-03-08] MEDS: normal saline 1000ml 1,000 ML IV ONE (05:27)
[2025-03-08 05:36] LABS: INFLUENZA TYPE A ANTIGEN RAPID NEGATIVE (Negative); INFLUENZA TYPE B ANTIGEN RAPID NEGATIVE (Negative)
[2025-03-08 05:42] LABS: CREATININE 0.99 MG/DL (0.40-0.90); PRO BRAIN NATRIURETIC PEPTIDE 1274 PG/ML (0-450); TOTAL CARBON DIOXIDE 28.2 MMOL/L (24-32); eCRCL 41 ML/MIN; eGFR 53 ML/MIN
--- NOTE | 2025-03-08 06:00 | RADIOLOGY REPORT ---
CHEST RADIOGRAPH INDICATION: SEPSIS TECHNIQUE: Single frontal view of the chest was obtained COMPARISON: DI CHEST,TWO VIEWS on DOS: 09/30/24, DI CHEST,SINGLE VIEW on DOS: 09/01/23, CHEST,SINGLE VIEW on DOS: 05/19/22, CHEST,SINGLE VIEW on DOS: 12/08/19 FINDINGS: Lines and Tubes: None. Left anterior chest wall dual lead cardiac pacing device. Lungs: Mild right basilar pulmonary airspace disease. The remaining lung zones are clear. Pleura: No effusion. No pneumothorax. Cardiomediastinal contours: Unremarkable Bones: Unremarkable IMPRESSION: 1. Mild right basilar pulmonary airspace disease.
--- NOTE | 2025-03-08 06:00 | ELECTROCARDIOGRAPH REPORT ---
[facility] Test Date: 2025-03-08 Test Time: 04:40:20 Pat Name: DEBRA WILKES Department: EMERGENCY ROOM Room: Gender: F Bight Maker: : 1935 Requested By: YAMILA ALEGRE Order Number: [id number] Reading MD: Dr. Shaheen Gold Measurements Intervals [place] Rate: 83 P: 39 [place]: 148 QRS: 24 QRSD: 88 T: 71 QT: 389 QTc: 457 Interpretive Statements Atrial-paced complexes Minimal ST depression, lateral leads Electronically Signed On 03-10-2025 21:14:[address] Shaheen Gold Please click the below link to view image of tracing.
--- NOTE | 2025-03-08 06:13 | Physician Documentation ---
History of Present Illness General Chief Complaint: Fever Stated Complaint: BLADDER DISCOMFORT M ALS Time Seen by MD: 06:13 Primary Medical Doctor: JUNITO Source: patient, family Mode of Arrival: EMS Exam Limitations: no limitations History of Present Illness Initial Comments 89 year old female with a history of diabetes and right sided lung cancer presents to the emergency department for complaints of a fever that has been present for two days. Patient was brought in by ambulance and is accompanied by family. She states that she has been experiencing fevers as well as general aches and pains that began two days ago. Patient denies any shortness of breath or any home oxygen use. Medication Reconciliation Allergies: Coded Allergies: Penicillins (Verified Allergy, Unknown, RASH, 03/08/25) RECIEVED [facility] IN 2011 Scheduled Amlodipine Besylate (Amlodipine Besylate), 1 TABLET PO DAILY, (Reported) Apixaban (Eliquis), 1 TAB PO BID, (Reported) Aspirin (Aspirin EC), 1 TAB PO DAILY, (Reported) Atorvastatin Calcium (Atorvastatin Calcium), 1 TAB PO DAILY, (Reported) Carvedilol (Carvedilol), 1 TAB PO BID, (Reported) Cefpodoxime Proxetil (Cefpodoxime Proxetil), 1 TAB PO Q12H Cholecalciferol (Vitamin D3) (Vitamin D3), 1 CAP PO Q7D, (Reported) Enalapril Maleate (Enalapril Maleate), 1 TAB PO BID, (Reported) Meclizine HCl (Meclizine HCl), 1 TAB PO Q8H Metformin Hcl* (Metformin ER*), 1 TAB PO BID, (Reported) Omeprazole (Prilosec), 1 CAP PO DAILY, (Reported) Paroxetine HCl (Paroxetine HCl), 1 TAB PO DAILY, (Reported) Vit A/Vit C/Vit E/Zinc/Copper (Preservision Areds Softgel), 1 EACH PO BID, (Reported) Past Medical History Past Medical History: Arrhythmia, Congestive Heart Failure, Hypertension, UTI, Diabetes, Lung Cancer, Anxiety, Depression Past Surgical History: cancer surgery, cholecystectomy, colectomy Alcohol Use: Rarely Drug Use: none Lives with: Family Lives In: Home Occupation: retired Review of Systems All Other Systems at this time: Reviewed and Negative ROS Patient was asked, but denied any other symptoms. All other systems are negative other than those mentioned above. Physical Exam Physical Exam Vital Signs: RN Vital Signs have been reviewed: Yes, Temperature: 99.0, Source: Oral, Heart Rate: 78, Respiratory Rate: 18, BP: 156/63, Pulse Oximetry: 99, Weight: 75.900 Oxygen Flow Rate: 1.0 Pulse Oximetry Reflects: adequate oxygenation Physical Exam VITALS: Reviewed and as above. GENERAL: Alert, no apparent distress. HEENT: Normocephalic, atraumatic. PERRL, EOMI. Dry mucosa, no erythema. RESPIRATORY: Lungs clear, normal breath sounds, no respiratory distress. CHEST: Slight crackles appreciated at the left base of lungs. CV: Regular rate and rhythm. No edema, no murmur, No: JVD GI: Soft, non-tender, bowel sounds present. No rebound, guarding, or rigidity. BACK: No CVA tenderness, no swelling. MUSCULOSKELETAL: No deformities, no edema SKIN: Warm and dry, no rash. NEURO: Oriented x4. No motor or sensory deficit. PSYCH: Normal mood and affect, no agitation. Progress Results/Orders Results/Orders Completed Orders - OHLFS,UMM Huber MD Ceftriaxone/J2p-Tvtirjbr 1gm (Rocephin 1 (03/08/25 06:35) Normal Saline 1000ml (0.9% Sodium Chlori (03/08/25 07:35) Vital Signs 03/08/25 03/08/25 03/08/25 03/08/25 04:42 05:46 05:47 06:32 Temp 101.2 99.0 Pulse 87 78 Resp 27 24 18 B/P (MAP) 156/63 156/63 (94) Pulse Ox 91 99 O2 Flow Rate 1.0 03/08/25 07:58 Temp 99.0 Pulse 81 Resp 14 B/P (MAP) 156/63 Pulse Ox 95 Laboratory Tests Test 03/08/25 04:50 03/08/25 06:37 03/08/25 07:16 White Blood Count 6.5 Red Blood Count 3.07 L Hemoglobin 10.1 L Hematocrit 30.9 L Mean Corpuscular Volume 100.6 H Mean Corpuscular Hemoglobin 32.9 H Mean Corpuscular Hemoglobin Concent 32.7 L Red Cell Distribution Width 14.7 H Platelet Count 173 Mean Platelet Volume 9.7 Neutrophils (%) (Auto) 76.9 H Lymphocytes (%) (Auto) 12.7 L Monocytes (%) (Auto) 8.0 Eosinophils (%) (Auto) 1.4 Basophils (%) (Auto) 1.0 Neutrophils # (Auto) 5.0 Lymphocytes # (Auto) 0.8 L Monocytes # (Auto) 0.5 Eosinophils # (Auto) 0.1 Basophils # (Auto) 0.1 CBC Comment Sodium Level 138 Potassium Level 3.9 Chloride Level 103 Carbon Dioxide Level 28.2 Anion Gap 7 L Blood Urea Nitrogen 17 Creatinine 0.99 H Estimated GFR/1.73 m2 53 BUN/Creatinine Ratio 17.2 Glucose Level 138 H Calcium Level 8.2 L Magnesium Level 1.8 Troponin I High Sensitivity 18 23 Pro-B-Type Natriuretic Peptide 1274 H Albumin 3.0 L Procalcitonin < 0.05 Chemistry Comments Influenza Type A Antigen Negative Influenza Type B Antigen Negative SARS-CoV-2 Antigen (Rapid) Negative Urine Specimen Description Non-specified Urine Color Yellow Urine Clarity Cloudy Urine pH 6.0 Urine Specific [place] 1.015 Urine Protein 30 H Urine Glucose (UA) Negative Urine Ketones Negative Urine Occult Blood Negative Urine Nitrite Negative Urine Bilirubin Negative Urine Urobilinogen 0.2 Urine Leukocyte Esterase Negative Urine RBC None seen Urine WBC 5-10 H Urine Squamous Epithelial Cells Few Urine Bacteria 4+ Urine Mucus None seen Urine Culture Indicated Indicated Volume Urine Centrifuged 10 ml Urine Comment Lactic Acid Level 0.6 Troponin I High Sens Percent Delta 27 Troponin I Hi Sens Absolute Change 5 Microbiology Date/Time Source Procedure Growth Status 03/08/25 07:24 Urine Nonspecified Urine Culture - Preliminary Culture received. Resulted 03/08/25 07:16 Blood Hand Left Blood Culture - Preliminary NEGATIVE (LESS THAN 24 HOURS) Resulted EKG/XRAY/CT/US/VASC/MRI EKG : Additional Comment 0600: [facility] interpreted EKG to show sinus rhythm at a rate of 83. EKG showed Q waves in 3 and V1 and V2 with no ST abnormalities. Chest X-Ray #1: Interpreted By: self Views: 1 VIEW Indication: fever Additional Comments [facility] interpreted the single frontal view chest xray as the lungs being clear with slight widening in the mediastinum. Lungs are clear and there is no acute disease present. Chest X-Ray #2: Interpreted By: radiologist Views: 1 VIEW Additional Comments CHEST RADIOGRAPH INDICATION: SEPSIS TECHNIQUE: Single frontal view of the chest was obtained COMPARISON: DI CHEST,TWO VIEWS on DOS: 09/30/24, DI CHEST,SINGLE VIEW on DOS: 09/01/23, CHEST,SINGLE VIEW on DOS: 05/19/22, CHEST,SINGLE VIEW on DOS: 12/08/19 FINDINGS: Lines and Tubes: None. Left anterior chest wall dual lead cardiac pacing device. Lungs: Mild right basilar pulmonary airspace disease. The remaining lung zones are clear. Pleura: No effusion. No pneumothorax. Cardiomediastinal contours: Unremarkable Bones: Unremarkable IMPRESSION: 1. Mild right basilar pulmonary airspace disease. Electronically Signed by:GALLO LOPEZ MD Date & Time: 03/08/25 0557 Medical Decision Making Additional information obtaine: old records Findings The patient is a an 89-year-old female that presented with fever and urinary symptoms, the patient's workup demonstrated a urinary tract infection her chest x-ray showed a possible opacity however she remained breathing comfortably there was no hypoxia and she does have pneumonectomy in the area of the radiologist's concern, I reviewed the x-ray myself I do not appreciate a pneumonia. The patient responded to fluids and antibiotics here in the emergency room other etiologies of her infection were considered but not supported by the clinical evidence to include pneumonia biliary tract disease colitis viral syndromes including COVID and influenza for which she was tested. The patient remained hemodynamically stable comfortable the patient was placed on antibiotics the patient's prior hospitalizations has been reviewed her pulse oximetry was interpreted as normal and adequate and her cafeteria monitor was interpreted as a sinus rhythm the patient will be discharged Differential Diagnosis see above Departure Time of Disposition: 07:43 Disposition: 01 HOME / SELF CARE / HOMELESS Impression: Primary Impression: Fever Qualified Codes: R50.9 - Fever, unspecified Additional Impression: UTI (urinary tract infection) Qualified Codes: N30.00 - Acute cystitis without hematuria Condition: Stable Discharge Instructions: Urinary Tract Infection, Adult, [id number] Referrals: NO PRIMARY CARE PROVIDER (PCP) Prescriptions Cefpodoxime Proxetil (Cefpodoxime Proxetil) 100 Mg Tablet 1 TAB PO Q12H for 7 Days, #14 TAB 0 Refills Prov: UMM VILLA MD 03/08/25 Education Educated: Patient, Family Educated regarding: diagnosis, treatment, prognosis Signature Scribe Signature: Scribed by Bridgette Peters Attestation: The note accurately reflects work and decisions made by me.Umm Villa MD 03/09/25 06:18 UMM VILLA MD Mar 08, 2025 06:13
[2025-03-08] MEDS: CefTRIAXone/D5W-Rocephin 1gm 50 ML IV ONE (06:50)
[2025-03-08 06:52] LABS: LEUKOCYTE ESTERASE ,URINE NEGATIVE (Neg); NITRITES, URINE NEGATIVE (Neg); OCCULT BLOOD,URINE NEGATIVE (Neg)
[2025-03-08 07:20] LABS: UA COLLECTION TYPE NON-SPECIFIED
[2025-03-08 07:23] LABS: MUCUS STRANDS NONE SEEN /LPF (Neg); SQUAMOUS EPITHELIAL CELL,UR FEW /LPF (FEW)
[2025-03-08] MEDS ORDERED: normal saline 1000ML IV soln IVB ONE (07:35)
[2025-03-08] MEDS ORDERED: CEFP100T7 PO (07:46)
[2025-03-08 07:58] VITALS: BP 156/63; PULSE 81; RESP 14; TEMP 99; O2SAT 95
== END 2025-03-08 08:04 | disposition home or self-care (01) ==
LOC: ER 04:30
DX: N39.0 Urinary tract infection, site not specified (principal); R50.9 Fever, unspecified; E11.9 Type 2 diabetes mellitus without complications; I11.0 Hypertensive heart disease with heart failure; I50.9 Heart failure, unspecified; F41.9 Anxiety disorder, unspecified; F32.A Depression, unspecified; Z85.118 Personal history of other malignant neoplasm of bronchus and lung; Z87.440 Personal history of urinary (tract) infections; Z88.0 Allergy status to penicillin; Z90.49 Acquired absence of other specified parts of digestive tract; Z95.0 Presence of cardiac pacemaker; Z79.899 Other long term (current) drug therapy; Z79.82 Long term (current) use of aspirin; Z20.822 Contact with and (suspected) exposure to COVID-19
CPT/HCPCS: 36415; 71045; 80048; 81001; 83605; 83735; 83880; 84145; 84484; 85025; 87040; 87088; 87804; 87811; 93005; 96361; 96365; 99285; J0696; J7030